=== PATIENT | female | born 1975 | race Caucasian/White ===

== ENCOUNTER 2016-09-04 10:38 | Outpatient (CLI) | payer MEDICAID ==
[2016-09-04] MEDS ORDERED: LACTATED RINGERS 500 ML IV ONE (15:00)
== END 2016-09-04 14:18 | disposition home or self-care (01) ==
LOC: LAB 10:38 → TRG 13:46 → LAB 14:18
PROVIDERS: ATTEND Obstetrics & Gynecology
DX: O09.523 Supervision of elderly multigravida, third trimester (principal); O36.0130 Maternal care for anti-D [Rh] antibodies, third trimester, not applicable or unspecified; Z3A.31 31 weeks gestation of pregnancy
CPT/HCPCS: 86850; 86900; 86901; 96372; J2790

== ENCOUNTER 2016-11-20 05:53 | Day surgery (SDC) | payer MEDICAID ==
[2016-11-20] MEDS ORDERED: LACTATED RINGERS 1,000 ML IV SCH (06:00)
[2016-11-20] MEDS ORDERED: REGLAN PO NR (06:00)
[2016-11-20] MEDS ORDERED: VERSED IV NR (06:00)
[2016-11-20] MEDS ORDERED: PEPCID PO NR (06:00)
[2016-11-20] MEDS ORDERED: NACL BACTERIOSTATIC INFILTRATI ONE (06:43)
[2016-11-20] MEDS ORDERED: DIPRIVAN 10 MG/ML IV ONE (07:06)
[2016-11-20] MEDS ORDERED: DECADRON ONE (07:07)
[2016-11-20] MEDS ORDERED: XYLOCAINE MPF 2% ONE (07:07)
[2016-11-20] MEDS ORDERED: ZEMURON IV ONE (07:07)
[2016-11-20] MEDS ORDERED: ZOFRAN ONE (07:07)
[2016-11-20] MEDS ORDERED: DILAUDID ONE (07:11)
[2016-11-20] MEDS ORDERED: MARCAINE 0.25% INFILTRATI ONE ×2 (07:26→07:40)
[2016-11-20] MEDS ORDERED: METHYLENE BLUE ONE (07:26)
--- NOTE | 2016-11-20 07:28 | Anesthesia Consultation ---
Anesthesia Consult and Med Hx Date of service: 11/20/16 - Airway Anesthetic Teeth Evaluation: Good ROM Head & Neck: Adequate Mental/Hyoid Distance: Adequate Mallampati Class: Class II Intubation Access Assessment: Probably Good - Pulmonary Exam CTA: Yes - Cardiac Exam Cardiac Exam: RRR - Pre-Operative Health Status ASA Pre-Surgery Classification: ASA2 Proposed Anesthetic Plan: General - Pulmonary Hx Smoking: Yes (former, quit 3 yrs ago) Hx Asthma: No - Cardiovascular System Hx Hypertension: No - Central Nervous System Hx Seizures: No Hx Psychiatric Problems: No - Endocrine Hx Renal Disease: No Hx Hypothyroidism: No Hx Hyperthyroidism: No - Hematic Hx Sickle Cell Disease: No - Other Systems Hx Alcohol Use: No - Additional Comments Anesthesia Medical History Comments: 4 weeks post , not breast feeding
--- NOTE | 2016-11-20 07:28 | Anesthesia Day of Surgery ---
Anesthesia Day of Surgery - Day of Surgery Patient Examined: Yes Patient is NPO: Yes
[2016-11-20] MEDS ORDERED: ZOFRAN IV PRN (07:30)
[2016-11-20] MEDS ORDERED: DILAUDID IV PRN (07:30)
--- NOTE | 2016-11-20 07:36 | Short Stay Summary ---
Short Stay Documentation Date of service: 11/20/16 Narrative H&P: patient is a 40 year old who is 6 weeks post and presents for elective sterilization - History Principal diagnosis: undesired fertility H&P: obtained from office Past Medical History: No medical history Past Surgical History: No surgical history Social history: single - Allergies and Medications Current Medications: Allergies No Known Allergies Allergy (Unverified 09/04/16 14:08) Active Medications Famotidine (Pepcid) 20 mg PO PREOP NR Stop: 11/20/16 15:00 Last Admin: 11/20/16 07:11 Dose: 20 mg Hydromorphone HCl (Dilaudid) 0.5 mg IV Q10MIN PRN PRN Reason: Pain , Severe (7-10) Stop: 11/20/16 19:00 Lactated Ringer's (Lactated Ringers) 1,000 mls @ 75 mls/hr IV DIRECT JESÚS Last Admin: 11/20/16 07:15 Dose: 75 mls/hr Metoclopramide HCl (Reglan) 10 mg PO PREOP NR Stop: 11/20/16 15:00 Last Admin: 11/20/16 07:11 Dose: 10 mg Midazolam HCl (Versed) 2 mg IV PREOP NR Stop: 11/20/16 23:59 Last Admin: 11/20/16 07:18 Dose: 2 mg Ondansetron HCl (Zofran) 4 mg IV ONCE PRN PRN Reason: Nausea And Vomiting Stop: 11/20/16 19:00 - Physical exam Lungs: Clear to auscultation, Normal air movement Breasts: deferred Heart: Regular rate, Normal S1, Normal S2 Gastrointestinal: normal, normoactive bowel sounds Female Genitourinary: normal Extremities: no ischemia, No edema Short Stay Discharge Plan Follow up with: BRUNILDA EDWARDS MD [Primary Care Provider] - 7 Days
[2016-11-20] MEDS ORDERED: NACL 0.9% IR ONE (07:40)
[2016-11-20] MEDS ORDERED: ANCEF/STERILE WATER 2 GM/20 ML 2 GM/20 ML SYRINGE IV NR (08:00)
--- NOTE | 2016-11-20 09:04 | Post Operative Note ---
Pre-op diagnosis: Undesired fertility Post-op diagnosis: same Findings: NOrmal uterus tubes and ovaries Procedure: Bilateral salpingectomy, laparoscopic approach Anesthesia: GETA Surgeon: BRUNILDA EDWARDS Estimated blood loss: none Pathology: list (Right and left fallopian tubes) Specimen disposition: to lab Condition: stable Disposition: PACU
--- NOTE | 2016-11-20 09:06 | Discharge Summary ---
Providers - Providers Date of Admission: 11/20/2016 Date of discharge: 11/20/16 Attending physician: BRUNILDA EDWARDS 11/20/16 08:00 Consult to Anesthesiology [CONS] Routine Consulting Provider: ASH ANESTHESIA ISABEL WOMACK Reason For Exam: SURGERY TODAY Primary care physician: BRUNILDA EDWARDS Hospitalization Reason for admission: other (undesired fertility) Procedure: bilateral tubal ligation Incision: normal, intact Discharge diagnosis: other Condition at discharge: Good Disposition: DC-01 TO HOME OR SELFCARE Plan - Provider Discharge Summary Activity: routine, no sex for 6 weeks, no heavy lifting 4 weeks, no strenuous exercise Diet: routine Instructions: routine Additional instructions: [] Smoking cessation referral if applicable(refer to patient education folder for contact #) [] Refer to [facility]'s [facility] Booklet Call your doctor immediately for: * Fever > 100.5 * Heavy vaginal bleeding ( >1 pad per hour) * Severe persistent headache * Shortness of breath * Reddened, hot, painful area to leg or breast * Drainage or odor from incision. * Keep incision clean and dry at all times and follow doctor's instructions regarding bathing/showering - Follow up plan Follow up: BRUNILDA EDWARDS MD [Primary Care Provider] - 14 Days
[2016-11-20] MEDS ORDERED: DEMEROL IV PRN ×2 (09:37→10:00)
--- NOTE | 2016-11-20 11:00 | Post Anesthesia Evaluation ---
- Post Anesthesia Evaluation Patient Participated: Yes Airway Patent: Yes Stable Respiratory Function: Yes Nausea/Vomiting: No Temp > 96.8F: Yes Pain Manageable: Yes Adequeate Hydration: Yes Anesthesia Complications: No Block Receding Appropriately: Not Applicable Patient on Ventilator: No
[2016-11-20 12:54] VITALS: BP 132/84
--- NOTE | 2016-11-25 16:31 | Operative Report ---
Operative Report Operative Report: Preoperative diagnosis: Undesired fertility Postoperative diagnosis: Same Procedure: Bilateral laparoscopic salpingectomy Surgeon: Michelle Ram Anesthesia: General EBL: Minimal IV fluids: 1000 mL Urine output:[100] Findings:[Normal uterus tubes and ovaries] Specimens: Portion of right and left fallopian tube Complications: None The patient was properly identified as herself. She was then taken to the OR with IV running and in place. She was given general anesthesia without difficulty. She was placed in a dorsal lithotomy position. She was then prepped and draped in normal sterile fashion. Attention was turned to the patient's vagina. Her bladder was drained of clear urine with a red rubber catheter. The speculum was then placed the patient's vagina. The cervix was visualized and grasped with tenaculum. The acorn cannula was then inserted. The surgeon's gloves were changed and attention turned to the patient's abdomen. A small incision was made in the patient's umbilicus incision a 5 mm trocar was placed. The laparoscope confirmed intra-abdominal placement. The abdomen was insufflated with CO2 gas to approximately 25 mmHg. Both fallopian tubes were identified. With direct visualization a second trocar was placed through an incision in the left lower quadrant. Both tubes were found and followed out to the fimbriated ends. Each tube was cauterized at the portion nearest the cornua, then cauterized across the broad ligament until the tube was completely detached. There was excellent hemostasis at the end of this portion of the procedure. Each tube was handed off for pathology. At this point the abdomen was deflated. All instruments were then removed from the abdomen. The incisions were then closed with 4-0 Monocryl. The incisions were also injected with quarter percent Marcaine. The patient tolerated the procedure well she was then awakened and taken recovery in stable condition. Sponge needle and instrument counts were correct 2.
== END 2016-11-20 11:26 | disposition home or self-care (01) ==
LOC: OR 05:53
PROVIDERS: ATTEND Obstetrics & Gynecology
DX: Z30.2 Encounter for sterilization (principal); N83.8 Other noninflammatory disorders of ovary, fallopian tube and broad ligament; Z87.891 Personal history of nicotine dependence
CPT/HCPCS: 58661; 81025; 88302; J0690; J1100; J1170; J2175; J2250; J2405; J2704; J7120; Q9968